=== PATIENT | male | born 1970 | race Caucasian/White ===

== ENCOUNTER 2020-02-28 18:08 | Emergency (ER) | payer SELFPAY ==
[2020-02-28 20:29] VITALS: BP 118/79
== END 2020-02-28 20:29 | disposition home or self-care (01) ==
LOC: ED 18:08
DX: S62.522A Displaced fracture of distal phalanx of left thumb, initial encounter for closed fracture (principal); X58.XXXA Exposure to other specified factors, initial encounter; Y93.89 Activity, other specified; Y92.89 Other specified places as the place of occurrence of the external cause; Y99.8 Other external cause status
CPT/HCPCS: 90715; A4570; J1885; J2001; J2270; Q0092

== ENCOUNTER 2020-03-01 11:07 | Emergency (ER) | payer MEDICAID ==
[~2020-03-01] VITALS: Ht 167.6 cm; Wt 73.9 kg
[2020-03-01 11:18] VITALS: Ht 167.6 cm; Wt 73.9 kg
[2020-03-01 11:57] VITALS: BP 121/78
== END 2020-03-01 11:57 | disposition home or self-care (01) ==
LOC: ED 11:07
DX: S61.012D Laceration without foreign body of left thumb without damage to nail, subsequent encounter (principal); X58.XXXD Exposure to other specified factors, subsequent encounter

== ENCOUNTER 2020-03-09 18:13 | Emergency (ER) | payer MEDICAID ==
[~2020-03-09] VITALS: Ht 167.6 cm; Wt 73.5 kg
[2020-03-09 18:26] VITALS: BP 122/81; Ht 167.6 cm; Wt 73.5 kg
== END 2020-03-09 19:20 | disposition home or self-care (01) ==
LOC: ED 18:13
DX: S61.012D Laceration without foreign body of left thumb without damage to nail, subsequent encounter (principal); S60.112D Contusion of left thumb with damage to nail, subsequent encounter; X58.XXXD Exposure to other specified factors, subsequent encounter